=== PATIENT | male | born 1955 | race Two or more races ===

== ENCOUNTER 2018-09-19 15:32 | Emergency (ER) | payer OTHER ==
[~2018-09-19] VITALS: Ht 170.2 cm; Wt 98.0 kg
== END 2018-09-19 20:11 | disposition home or self-care (01) ==
LOC: ER 15:32
DX: M47.896 Other spondylosis, lumbar region (principal); M54.89 Other dorsalgia; M54.6 Pain in thoracic spine; M54.2 Cervicalgia

== ENCOUNTER 2021-03-07 21:24 | Emergency (ER) | payer OTHER ==
[~2021-03-07] VITALS: Ht 172.7 cm; Wt 104.3 kg
[2021-03-07] MEDS ORDERED: CLONAZEPAM0.5 MG PO (21:59)
[2021-03-07] MEDS ORDERED: TEGRETOL200 MG PO (21:59)
[2021-03-07] MEDS ORDERED: GLUMETZA500 MG (22:00)
[2021-03-07] MEDS ORDERED: SEROQUEL50 MG (22:00)
== END 2021-03-07 22:48 | disposition home or self-care (01) ==
LOC: ER 21:24
DX: H61.23 Impacted cerumen, bilateral (principal)

== ENCOUNTER 2025-10-07 10:32 | Inpatient (IN) | payer OTHER ==
[~2025-10-07] VITALS: Ht 170.2 cm; Wt 115.7 kg
[~2025-10-07 10:32] MED LIST: CLONAZEPAM0.5 MG PO; GLUMETZA500 MG; SEROQUEL50 MG; TEGRETOL200 MG PO
--- NOTE | 2025-10-07 11:08 | NUR ---
PACIENTE CON DIFICULTAD RESPIRATORIA , PERDIDA DE FUERZA EN [place]. REFIERE CAIDAS. EKG REALIZADO. EN TRIAGE.
--- NOTE | 2025-10-07 11:19 | NUR ---
SE REALIZA LAB GEOFF[facility]Y ORDEN MEDICA BAJO MEDIDAS ASEPTICAS. SE ORIENTA PTE QUIEN REFIERE ENTENDER Y ACEPTAR.
[2025-10-07 11:46] LABS: BASO % 0.7 % (0.1-1.2); EOS # 0.08 (0.04-0.54); EOS % 1.3 % (0.7-7.0); LYMPH # 2.15 (1.18-3.74); LYMPH % 35.1 % (19.3-53.1); MEAN PLATELET VOLUME 10.80 fl (9.4-12.4); MONO # 0.53 (0.24-0.82); MONO % 8.6 % (4.7-12.5); NEUT # 3.32 (1.56-6.13); NEUT % 54.1 % (34.0-71.1); RED CELL DISTRIBUTION WIDTH 13.5 % (11.6-14.4)
[2025-10-07 12:09] LABS: INR 1.04
[2025-10-07 13:25] LABS: ALT/SGPT 37.0 U/L (12-78); AST/SGOT 21.0 U/L (15-37); BILIRUBIN TOTAL 0.29 mg/dL (0.3-1.2); BUN CREA RATIO 23.0 (7.0-25.0); CREATININE SERUM 1.8 mg/dL (0.70-1.30); GFR 37.27; GLOBULINA 3.4 G/DL (2.4-3.5); GLUCOSE FASTING 131.0 mg/dL (65-100); OSMOLALITY SERUM 303.0 MOSM/KG (275-295)
--- NOTE | 2025-10-07 15:11 | NUR ---
SE RECIBE PTE ALERTA Y ORIENTADO X3 CONECTADO A MONITOR CARDIACO Y OXIMETRIA DE PUL[place]. PTE AL MOMENTO CANALIZADO CON ANGIO #18 ANTECUBITAL AREA DERECHA. SE MANTIENE EN OBSERVACION PARA CONTINUACION DE TRATAMIENTO.
[2025-10-07] MEDS ORDERED: NITROGLYCERIN IN 5 % DEXTROSE 250 ML IV SCH (16:06)
[2025-10-07] MEDS ORDERED: ASPIRIN 325 MG TABLET PO ONE (16:15)
[2025-10-07] MEDS ORDERED: NITROGLYCERIN IN 5 % DEXTROSE 50 MG/250 ML BOTTLE IV ONE (16:20)
--- NOTE | 2025-10-07 16:55 | NUR ---
SE ADMINISTRA ASPIRINA 325 MG Y NITROGLICERINA IV EN IV PUMP A 1ML LA HORA GEOFFREY ORDEN MEDICA.
[2025-10-07] MEDS ORDERED: DEXTROSE 50 % IN WATER 0.5 G/ML DISP.SYRIN IV PRN (18:45)
[2025-10-07] MEDS ORDERED: INSULIN LISPRO 1,000 UNIT/10 ML UNITS SUBCUTANEO PRN (18:45)
[2025-10-07 19:28] VITALS: BP 123/77; O2SAT 100
[2025-10-07] MEDS ORDERED: ENOXAPARIN SODIUM 60 MG/0.6 ML SYRINGE SUBCUTANEO SCH (21:00)
[2025-10-07] MEDS ORDERED: CARBAMAZEPINE 200 MG TABLET PO SCH (21:00)
[2025-10-07 21:55] LABS: COVID-19 AG NEGATIVE (NEGATIVE)
[2025-10-07 22:36] VITALS: BP 160/59
[2025-10-07 23:20] VITALS: BP 153/78; O2SAT 100
[2025-10-08] VITALS (12 sets, daily range): BP systolic 119–152; BP diastolic 53–75; O2SAT 94–100
[2025-10-08] MEDS ORDERED: NITROGLYCERIN IN 5 % DEXTROSE 50 MG/250 ML BOTTLE IV ONE (01:09)
[2025-10-08 05:46] LABS: BASO % 0.3 % (0.1-1.2); EOS # 0.08 (0.04-0.54); EOS % 0.9 % (0.7-7.0); LYMPH # 1.71 (1.18-3.74); LYMPH % 19.3 % (19.3-53.1); MEAN PLATELET VOLUME 11.00 fl (9.4-12.4); MONO # 0.77 (0.24-0.82); MONO % 8.7 % (4.7-12.5); NEUT # 6.23 (1.56-6.13); NEUT % 70.5 % (34.0-71.1); RED CELL DISTRIBUTION WIDTH 13.2 % (11.6-14.4)
[2025-10-08 06:30] LABS: BUN CREA RATIO 26.0 (7.0-25.0); CHOL HDL RATIO 2.4 (0-5.0); CREATININE SERUM 1.28 mg/dL (0.70-1.30); GFR 55.24; GLUCOSE FASTING 90.0 mg/dL (65-100); HDL 63.0 mg/dl (40-60); LDL 66.0 mg/dl (0-130); OSMOLALITY SERUM 295.0 MOSM/KG (275-295); TSH 3.85 uIU/mL (0.358-3.74); VLDL 25.0 (0-39)
[2025-10-08] MEDS ORDERED: HALOPERIDOL LACTATE 5 MG/ML AMPUL IM PRN (08:15)
[2025-10-08] MEDS ORDERED: ENOXAPARIN SODIUM 60 MG/0.6 ML SYRINGE SUBCUTANEO SCH (09:00)
[2025-10-08] MEDS ORDERED: ENOXAPARIN SODIUM 100 MG/ML SYRINGE SUBCUTANEO SCH (09:00)
[2025-10-08] MEDS ORDERED: APIXABAN 5 MG TABLET PO SCH (09:00)
[2025-10-08] MEDS ORDERED: PANTOPRAZOLE SODIUM 40 MG/VIAL VIAL IV SCH (09:00)
[2025-10-08] MEDS ORDERED: ASPIRIN 81 MG TABLET.EC PO SCH (11:22)
[2025-10-08] MEDS ORDERED: SODIUM POLYSTYRENE SULFONATE 30G/8 TSP PO SCH (12:00)
[2025-10-08 17:25] LABS: CREATININE URINE RANDOM 63.2 MG/DL (30-125)
[2025-10-08] MEDS ORDERED: ROSUVASTATIN CALCIUM 20 MG TABLET PO SCH (21:00)
[2025-10-08] MEDS ORDERED: PATIENTS OWN MEDICATION (MEDICAMENTO EN PISO) PO SCH (21:00)
== END 2025-10-08 21:35 | disposition left against medical advice (07) | DRG 682 ==
LOC: ER 10:32 → ICU-2 18:47
PROVIDERS: General Practice; Internal Medicine Nephrology; Preventive Medicine Public Health & General Preventive Medicine; ADMIT Internal Medicine; ATTEND Internal Medicine
PROC: 4A033R1 Measurement of Arterial Saturation, Peripheral, Percutaneous Approach (ICD-10-PCS; principal; 2025-10-07)
PROC: 5A09357 Assistance with Respiratory Ventilation, Less than 24 Consecutive Hours, Continuous Positive Airway Pressure (ICD-10-PCS; 2025-10-07)
PROC: BW28ZZZ Computerized Tomography (CT Scan) of Head (ICD-10-PCS; 2025-10-07)
PROC: BB24ZZZ Computerized Tomography (CT Scan) of Bilateral Lungs (ICD-10-PCS; 2025-10-07)
PROC: B246ZZZ Ultrasonography of Right and Left Heart (ICD-10-PCS; 2025-10-07)
DX: N17.9 Acute kidney failure, unspecified (principal); I21.4 Non-ST elevation (NSTEMI) myocardial infarction; E66.2 Morbid (severe) obesity with alveolar hypoventilation; E66.813 Obesity, class 3; Z68.39 Body mass index [BMI] 39.0-39.9, adult; Z53.29 Procedure and treatment not carried out because of patient's decision for other reasons; E87.5 Hyperkalemia; R06.89 Other abnormalities of breathing